=== PATIENT | male | born 2000 | race American Indian/Alaskan Native ===

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

== ENCOUNTER 2022-07-08 23:43 | Emergency (ER) | payer MEDICAID, OTHER | END 2022-07-09 01:31 | disposition home or self-care (01) | LOC: DL.ED 23:43 | DX: S93.402A Sprain of unspecified ligament of left ankle, initial encounter (principal); X50.1XXA Overexertion from prolonged static or awkward postures, initial encounter | CPT/HCPCS: 73610-LT; 99282; 99283 ==